=== PATIENT | female | born 1965 | race Caucasian/White ===

== ENCOUNTER → 2022-07-02 12:54 | Outpatient (CLI) | payer OTHER, SELFPAY ==
--- NOTE | ~2022-07-02 | MR_ITS ---
EXAMINATION: MR brain/brain stem wo/w con DATE: 07/02/2022 13:47 INDICATION: Speech deficit. Transient ischemic attack. TECHNIQUE: Magnetic resonance imaging (MRI) of the brain and brainstem was performed without and with 12 mL MultiHance intravenous contrast. COMPARISON: None. FINDINGS: There is no intracranial hemorrhage, acute infarction, or abnormal intracranial mass lesion . The ventricles are normal in size. The paranasal sinuses are clear. The orbits are normal. The mast oid air cells are normal. IMPRESSION: 1. Normal brain. Reviewed, dictated and finalized at location A. IMPRESSION: 1. Normal brain.
== END ==
PROVIDERS: PCP Family Medicine; Visit Provider Family Medicine
DX: G45.9 Transient cerebral ischemic attack, unspecified (principal)
CPT/HCPCS: 70553; A9577

== ENCOUNTER → 2022-07-11 07:42 | Outpatient (CLI) | payer OTHER, SELFPAY ==
--- NOTE | ~2022-07-11 | MR_ITS ---
EXAMINATION: MRA brain wo con DATE: 07/11/2022 08:49 INDICATION: Transient ischemic attack. Right finger numbness. TECHNIQUE: Magnetic resonance angiography (MRA) of the brain was performed without intravenous contra st with T1-weighted SPGR by the 3D [id number] technique. Maximum intensity projection 3D-reconstr uctions were obtained. COMPARISON: Brain MRI 07/02/2022 FINDINGS: Left vertebral artery is dominant. There is no significant stenosis of basilar artery or the posterio r cerebral arteries. There is no significant stenosis of the intracranial internal carotid arteries o r anterior or middle cerebral arteries. Anterior communicating artery is normal. Posterior communicat ing arteries are not identified. There is no aneurysm. IMPRESSION: 1. Normal head MRA. Reviewed, dictated and finalized at location A. IMPRESSION: 1. Normal head MRA.
== END ==
PROVIDERS: PCP Family Medicine; Visit Provider Family Medicine
DX: G45.9 Transient cerebral ischemic attack, unspecified (principal)
CPT/HCPCS: 70544

== ENCOUNTER 2023-03-25 09:37 | Observation (INO) | payer OTHER, SELFPAY ==
[2023-03-25] VITALS (21 sets, daily range): BP systolic 102–139; BP diastolic 56–87; PULSE 70–89; RESP 9–39; TEMP 36.4–36.7; O2SAT 98–100
--- NOTE | ~2023-03-25 | CT_ITS ---
EXAMINATION: CTA BRAIN/CAROTID DATE: 03/25/2023 11:56 INDICATION: Stroke symptoms TECHNIQUE: Computed tomographic angiography (CTA) of the head and neck was performed with 100 mL Omni paque-350 intravenous contrast. Multiplanar reconstructions and maximum intensity projection 3D-recon structions of the carotid arteries and of the intracranial arteries were created by the technologist on a separate workstation. Precontrast CT of the head was also obtained. Automated exposure control and iterative reconstruction technique were employed.The dose-length product was 913.34 mGy-cm. COMPARISON: None. FINDINGS: Carotid arteries: Aortic arch is normal caliber with no evident atherosclerotic plaque or dissection. Bilateral vertebr al arteries are codominant. Is no evident atherosclerotic plaque with 0% stenosis of the right and le ft carotid bulbs relative to normal distal artery lumen diameter (NASCET criteria). Visualized portio ns of the upper lungs are clear. Diffuse wall thickening along the esophagus suggestive of esophagiti s. Superior mediastinum is otherwise unremarkable. Mild to moderate cervical spondylosis most promine nt at C5-C6. Intracranial arteries There is no hemodynamically significant stenosis in the vertebral, basilar and internal carotid arter ies. Vertebral arteries are codominant. There are no aneurysms identified. Both A1 and P1 segments a re patent. There is a patent anterior communicating artery. Cerebral arterial arborization appears sy mmetric. No abnormally enhancing brain lesions. IMPRESSION: 1. 0% stenosis of the right and left carotid bulbs relative to normal distal artery lumen diameter (N ASCET criteria). 2. Normal cerebral CT angiogram. 3. Diffuse wall thickening of the visualized proximal to mid esophagus suggestive of esophagitis. Reviewed, dictated and finalized at location A. IMPRESSION: 1. 0% stenosis of the right and left carotid bulbs relative to normal distal ar sapphire lumen diameter (NASCET criteria). 2. Normal cerebral CT angiogram. 3. Diffuse wall thickening of the visualized proximal to mid esophagus suggesti ve of esophagitis.
--- NOTE | ~2023-03-25 | CT_ITS ---
Non-contrast Head CT History: CVA Technique: Axial non-contrast imaging of the brain was performed. Dose reduction technique was used on this scan by utilizing automated exposure control and iterative reconstruction technique. The dose -length product (DLP) was 605.33 mGy-cm. Findings: There is no evidence of intracranial hemorrhage, mass lesion, or acute infarct. Brain par enchyma appears normal. The ventricles and subarachnoid spaces are normal in size. The calvarium ap pears normal. The visualized paranasal sinuses and mastoid air cells are clear. Impression: No significant abnormality seen. Case discussed with Dr. Sanches at 9:50 AM on 03/25/2023. Reviewed, dictated and finalized at [facility]. Impression: No significant abnormality seen. Case discussed with Dr. Sanches at 9:50 AM on 03/25/2023.
--- NOTE | ~2023-03-25 | US_ITS ---
EXAMINATION: US venous doppler [facility] DATE: 03/26/2023 16:11 INDICATION: Transient ischemic attack and patent foramen ovale. TECHNIQUE: Grayscale ultrasound images without and with compression and Doppler ultrasound images of the bilateral lower extremity veins were obtained. COMPARISON: None. FINDINGS: The visualized portions of right common femoral vein, profunda (deep) femoral vein, femoral vein, pop liteal vein, peroneal veins, posterior tibial veins, and greater saphenous vein outflow are patent. The visualized portions of left common femoral vein, profunda femoral vein, femoral vein, popliteal v ein, peroneal veins, posterior tibial veins, and greater saphenous vein outflow are patent. IMPRESSION: 1. No deep venous thrombosis. Reviewed, dictated and finalized at location E.
--- NOTE | ~2023-03-25 | MR_ITS ---
EXAMINATION: MR brain/brain stem wo con DATE: 03/25/2023 15:45 INDICATION: Dizziness. Dysphasia. TECHNIQUE: Magnetic resonance imaging (MRI) of the brain and brainstem was performed without intraven ous contrast. COMPARISON: Brain MRI 07/02/2022, head CT 03/25/2023 FINDINGS: There is no intracranial hemorrhage, acute infarction, or abnormal intracranial mass lesion . The ventricles are normal in size. The orbits are normal. The paranasal sinuses are clear. The mast oid air cells are normal. IMPRESSION: 1. Normal brain. Reviewed, dictated and finalized at location E. IMPRESSION: 1. Normal brain.
--- NOTE | ~2023-03-25 | XR_ITS ---
EXAMINATION: XR chest 1V portable DATE: 03/25/2023 10:08 INDICATION: Stroke. Headache. TECHNIQUE: frontal view of the chest was obtained. COMPARISON: None FINDINGS: The lungs are clear with no focal airspace opacities, pulmonary edema, pleural effusion or pneumothor ax. The cardiomediastinal silhouette is normal. Visualized bones and soft tissues are unremarkable. IMPRESSION: 1. No acute cardiopulmonary disease. Reviewed, dictated and finalized at location A.
--- NOTE | 2023-03-25 09:40 | ECG_ITS ---
Measurements Intervals [place] Rate: 80 P: 64 NC: 125 QRS: -6 QRSD: 118 T: 28 QT: 392 QTc: 455 Interpretive Statements SINUS RHYTHM INCOMPLETE RIGHT BUNDLE BRANCH BLOCK MINIMAL Q WAVES- HIGH LATERAL LEADS BASELINE ARTIFACT- I, III, AVR, AVL, AVF BORDERLINE ECG NO PREVIOUS ECG AVAILABLE FOR COMPARISON Electronically Signed On 03-25-2023 10:06:03 CDT by Fletcher Bush D.O.
[2023-03-25 09:53] LABS: Glucose Point of Care 101 mg/dl (65-105)
[2023-03-25 09:59] LABS: Basophils Absolute Auto 0.1 K/mm3 (0.0-0.1); Basophils Percent Auto 0.7 % (0.2-1.2); Eosinophils Absolute Auto 0.4 K/mm3 (0-0.3); Eosinophils Percent Auto 5.5 % (0-4.4); Hematocrit 43.3 % (37.0-47.0); Hemoglobin 13.5 g/dL (12.0-15.0); Immature Granulocyte Absolute 0.04 K/mm3 (0.00-0.031); Immature Granulocyte Percent A 0.5 % (0-0.5); Lymphocytes Absolute Auto 2.74 K/mm3 (0.9-3.2); Lymphocytes Percent Auto 35.9 % (18.3-44.2); Mean Corpuscular HGB Conc 31.2 g/dl (32-36); Mean Corpuscular Hemoglobin 26.4 pg (26-34); Mean Corpuscular Volume 84.7 fl (80-100); Mean Platelet Volume 9.3 fl (7.4-10.4); Monocytes Absolute Auto 0.6 K/mm3 (0.1-0.6); Monocytes Percent Auto 8.3 % (2.6-8.5); Neutrophils Absolute Auto 3.8 K/mm3 (1.3-6.7); Neutrophils Percent Auto 49.1 % (45.5-73.1); Platelet Count Result 277 k/mm3 (150-375); Red Blood Count 5.11 M/mm3 (4.2-5.4); Red Cell Distribution Width 11.9 % (11.5-14.5); White Blood Count 7.6 K/mm3 (4.5-10.0)
--- NOTE | 2023-03-25 10:00 | ED.NEUROSD ---
HPI - Neuro Symptoms/Deficit General Chief Complaint: Suspected CVA Stated Complaint: r/o CVA Time Seen by Provider: 03/25/23 09:47 History of Present Illness HPI Narrative: Patient is a 57-year-old female who presents ER with strokelike symptoms. Reports she woke up this morning and was getting ready to go to work. She got in the shower at 6 AM and developed dizziness and right eye blurred vision. That lasted approximately 30 minutes. While this was going on she also had difficulty speaking. Since the symptoms began she has continued to have some difficulty with conversing that is waxed and waned in intensity but has never been totally normal. She has had no focal weakness to an arm or leg. Dizziness is reported as feeling off balance. She was worked up for CVA in the past at [facility] but it was negative. She was found to have a hole in her heart. Related Data Home Medications Medication Instructions Recorded Confirmed hyoscyamine sulfate 0.125 mg 0.375 mg PO BID 03/25/23 03/25/23 tablet (Levsin) Allergies Allergy/AdvReac Type Severity Reaction Status Date / Time doxycycline AdvReac Vomiting Verified 03/25/23 14:15 Review of Systems Review of Systems: All systems reviewed & are unremarkable except as noted in HPI and below Constitutional: Constitutional: Denies chills, Denies fever(s) and Reports headache(s) Eyes: Eyes: Reports change in vision and Denies diplopia Cardiovascular: Cardiovascular: Denies chest pain, Denies radiating jaw, neck or arm pain and Denies palpitations Respiratory: Respiratory: Denies cough, Denies dyspnea and Denies wheezing Gastrointestinal: Gastrointestinal: Denies abdominal pain, Denies diarrhea, Denies nausea and Denies vomiting Neurologic: Reports Abnormal speech present, Reports dizziness, Reports headache(s) and Reports focal weakness PMF Past Medical History Medical History H/O irritable bowel syndrome Surgical History Surgical History (Updated 03/25/23 @ 13:05 by Muriel Beavers NP) H/O breast augmentation H/O colonoscopy H/O hernia repair H/O: hemorrhoidectomy S/P tonsillectomy Family History Family History Father Heart disease Liver disease Sibling Diabetes mellitus borderline Son Ulcerative colitis Social History Social History (Updated 03/25/23 @ 16:33 by Muriel Beavers NP) Social History: She lives with and grandson. she has 4 children. she works in [employer] at [employer] . she is raising her 14-year-old grandson. code status full Smoking status: Former smoker Alcohol intake: former Substance use: current Substance use type: does not use Lack of Transportation: No Lack of Food: Never True Current Housing: I Have Housing Concerned About Future Housing: No Difficulty Paying Gas/Electric Bills: No Difficulty Paying for Meds: No Currently Unemployed: No Education: High School Diploma/GED Difficulty w/ Childcare or Family Care: No Spiritual care concerns: No Exam Narrative: GENERAL: Well-appearing, well-nourished, and in no acute distress. HEAD: Normocephalic, atraumatic. EYES: PERRL and EOMI. ENT: Mucous membranes moist. CHEST: Clear to auscultation. No respiratory distress. HEART: Regular rate and rhythm. Normal peripheral pulses. ABDOMEN: Soft, nontender, nondistended. EXTREMITIES: Normal range of motion. No edema. SKIN: Warm, dry, no rash. NEURO: Mild left facial weakness, mild aphasia with no dysarthria. No upper or lower extremity drift. Normal finger-nose testing and normal sdlr-[id number] testing. Alert and oriented x3. PSYCH: Normal mood and affect. Course Course Emergency Course: Discussed case with [facility] stroke team, Dr. Mccrary. We will low stroke scale waxing waning symptoms it is felt patient is not a good candidate for t
[2023-03-25 10:06] LABS: Alanine Aminotransferase 23 U/L (6-35); Alkaline Phosphatase 74 U/L (38-126); Anion Gap 6 mmol/L (8-16); Aspartate Amino Transferase 45 U/L (14-36); Bilirubin,Total 0.9 mg/dL (0.2-1.3); Blood Urea Nitrogen 14 mg/dL (7-17); Calcium 8.9 mg/dL (8.4-10.2); Carbon Dioxide 27 mmol/L (22-30); Chloride 105 mmol/L (98-107); Estimated Glomerular Filt Rate > 60; Glucose 105 mg/dL (65-110); Potassium 4.3 mmol/L (3.4-5.0); Sodium 138 mmol/L (137-145)
[2023-03-25 10:11] LABS: INR 0.9; Partial Thromboplastin Time 20.1 SECONDS (22.3-36.8); Prothrombin Time 12.1 Seconds (11.1-14.7)
[2023-03-25 10:17] LABS: Troponin I < 0.012 ng/mL (0.000-0.034)
[2023-03-25] MEDS: ASPIRIN 81 MG CHEWABLE TABLET 324 MG PO (10:29)
[2023-03-25] MEDS: ATORVASTATIN 40 MG TABLET PO (11:33)
[2023-03-25] MEDS: ACETAMINOPHEN 500 MG TABLET 1000 MG PO (12:21)
--- NOTE | 2023-03-25 12:58 | PM.IMHP ---
H&P: HPI History of Present Illness Date/Time: 03/25/23 12:58 Chief Complaint: neurological symptoms Narrative: this is a 57-year-old female patient who came to the emergency room today for concern for stroke-like symptoms. The patient stated that she was her usual state of health this morning when she got up and went to work. The patient stated she gotten shower at 6:00 a.m. and developed dizziness and right eye blurred vision. It lasted for approximately 30 minutes. The patient stated that she has had this before and she was ruled out for TIA. The patient stated that sometimes she has migraines as well but has not had a migraine a long time. Today the patient stated that she had a severe headache on the right side of her head. The patient stated that she was also having difficulty speaking when she had the other symptoms as well this morning. The patient had no focal weakness but did feel like she was off balance and had some dizziness with this as well. She has had a workup at [facility] in the past and was negative. The patient stated that she has a hole in the heart and is supposed to follow-up with cardiology. It sounds like it may be a PFO. The patient stated she was given 3 baby aspirin and now her symptoms have all resolved. Chest x-ray was read as no acute cardiopulmonary disease. Head and neck CTA were read as the following. 0% stenosis of the right and left carotid bulbs relative to normal distal artery lumen diameter (NASCET criteria). 2. Normal cerebral CT angiogram. 3. Diffuse wall thickening of the visualized proximal to mid esophagus suggestive of esophagitis. brain MRI normal brain. ER physician reported to me that [facility] neurology had been consulted and recommended that the patient did not receive any tPA at this time. Patient is back to her baseline level and has no focal weakness. No further neurological symptoms. Her speech is clear and her vision has improved. Neurology has been consulted. The patient also stated that she is being seen by a GI specialist for her chronic diarrhea. She has had chronic diarrhea since she has had a colonoscopy. She has been placed on Levsin but it is not helping she continues to diarrhea. She states that she can no longer control. The patient is being admitted to observation status on the date of service of 03/25/2023. Review of Systems Review of Systems: All systems reviewed & are unremarkable except as noted in HPI and below Constitutional: Constitutional: Reports as per HPI and Reports no additional constitutional complaints Eyes: Eyes: Reports as per HPI and Reports no additional eye complaints ENT: Reports system reviewed and no additional complaints, except as documented and Reports Normal hearing present Cardiovascular: Cardiovascular: Reports no additional cardiovascular complaints Respiratory: Respiratory: Reports no additional respiratory complaints and Reports no additional respiratory complaints Gastrointestinal: Gastrointestinal: Reports as per HPI and Reports no additional gastrointestinal complaints Musculoskeletal: Musculoskeletal: Reports no additional musculoskeletal complaints Integumentary/Breasts: Skin/Breast: Reports system reviewed and no additional complaints, except as docu and Reports as per HPI Neurologic: Reports system reviewed and no additional complaints, except as documented, Reports as per HPI and Reports Normal hearing present Psychiatric: Psychiatric: Reports no additional psychiatric complaints and Reports as per HPI Endocrine: Endocrine: Reports no additional endocrine complaints Hematologic/Lymphatic: Hematologic/Lymphatic: Reports no additional hematologic/lymphatic complaints Allergic/Immunologic: Allergic/Immunologic: Reports no additional allergic/immunologic complaints PMFSH Past Medical History Medical History H/O irritable bowel synd
--- NOTE | 2023-03-25 14:15 | ADMGEN ---
This patient, Asya Sanches, was admitted to [facility] Surg Room 312-01. Patient/family oriented to hospital policies and general routines including ID bracelet, bed and alarms, visiting hours, pain management, procedures, bathroom and other care routines, personal items, smoking policy, room service/diet, and visiting hours. Information on how to activate the Rapid Response Team has been discussed. Patient/Family are encouraged to report perceived risks to care and to ask questions if they do not understand what they are told or what they should do.
[2023-03-25] MEDS: HYDROcodone/acetaminophen (*CRX) 5-325 MG TABLET 1 TAB PO (14:41)
[2023-03-26] VITALS (9 sets, daily range): BP systolic 93–122; BP diastolic 58–72; PULSE 62–96; RESP 14–15; TEMP 36–36.5; O2SAT 97–98; BMI 21.9
--- NOTE | 2023-03-26 | ECHO_ITS ---
Patient Info Name: Asya Sanches Age: 57 years : 1965 Gender: Female Ht: 63 in Wt: 123 lbs BSA: 1.58 m2 HR: 75 bpm BP: 118 / 64 mmHg Technical Quality: Good Exam Date: 03/26/2023 11:12 AM Exam Location: [facility] Patient Status: Outpatient Admit Date: 03/25/2023 Staff Ordering Physician: Muriel Beavers NP Firefighter: Sandra Gomes RDCS Attending Provider: Obie Mccarthy MD Referring Physician: Ruthann ESPINOZA; Exam Type: CA echo doppler w bubble study Study Info Complete two-dimensional, color flow and Doppler transthoracic echocardiogram is performed with agitated saline. Contrast/Agitated Saline Contrast/Ag. Saline: Agitated Saline Amount: 20.00 ml Administered By: Ghazal Reyes RDCS Existing IV Access: Yes Summary 1. Left ventricular chamber dimension is mildly enlarged. 2. Left ventricular systolic function is normal, estimated at 60-65%. 3. The left ventricular diastolic function is abnormal. 4. E/e' 10 is mildly elevated. 5. Agitated saline injection with and without valsalva maneuver opacified right side cardiac chambers and with valsalva maneuver few bubbles shunted to left cardiac chambers suggestive of patent foramen ovale. 6. There is trace mitral valve regurgitation. 7. There is mild tricuspid valve regurgitation. 8. No pulmonary hypertension, estimated pulmonary arterial systolic pressure is 24 mmHg. 9. There is trace pulmonic regurgitation. 10. There is trivial pericardial effusion. Left Ventricle E/e' 10 is mildly elevated. Left ventricular chamber dimension is mildly enlarged. Left ventricular systolic function is normal, estimated at 60-65%. The left ventricular diastolic function is abnormal. Right Ventricle Right ventricular chamber dimension is normal. Right ventricular systolic function is normal. Left Atria Left atrial chamber dimension is normal. Right Atria Right atrial chamber dimension is normal. Atrial Septum Agitated saline injection with and without valsalva maneuver opacified right side cardiac chambers and with valsalva maneuver few bubbles shunted to left cardiac chambers suggestive of patent foramen ovale. Suspected patent foramen ovale visualized by 2D and agitated saline imaging. Aortic Valve The aortic valve is trileaflet. There is no aortic valve stenosis. There is no aortic valve regurgitation. Pulmonic Valve There is trace pulmonic regurgitation. Mitral Valve There is no mitral valve stenosis. There is trace mitral valve regurgitation. Tricuspid Valve There is mild tricuspid valve regurgitation. No pulmonary hypertension, estimated pulmonary arterial systolic pressure is 24 mmHg. Pericardium/Pleural There is trivial pericardial effusion. Inferior Vena Cava Normal inferior vena cava with >50% collapse upon inspiration consistent with normal right atrial pressure, 5 mmHg. Aorta The aortic root size at the sinus of Valsalva is normal. Left Ventricular Outflow Tract Name Value Normal LVOT 2D LVOT Diameter 2.0 cm LVOT Doppler LVOT Peak Gradient 7 mmHg LVOT Mean Gradient 4 mmHg LVOT VTI
[2023-03-26 02:29] LABS: Toxigenic C. Diff POSITIVE (NEGATIVE)
[2023-03-26] MEDS: VANCOMYCIN ORAL 125 MG/2.5 ML SYRUP PO ×4 (05:13→23:27)
[2023-03-26 06:56] LABS: Basophils Absolute Auto 0.1 K/mm3 (0.0-0.1); Basophils Percent Auto 0.7 % (0.2-1.2); Eosinophils Absolute Auto 0.6 K/mm3 (0-0.3); Eosinophils Percent Auto 9.2 % (0-4.4); Hematocrit 40.4 % (37.0-47.0); Hemoglobin 12.3 g/dL (12.0-15.0); Immature Granulocyte Absolute 0.03 K/mm3 (0.00-0.031); Immature Granulocyte Percent A 0.4 % (0-0.5); Lymphocytes Absolute Auto 2.28 K/mm3 (0.9-3.2); Lymphocytes Percent Auto 33.2 % (18.3-44.2); Mean Corpuscular HGB Conc 30.4 g/dl (32-36); Mean Corpuscular Hemoglobin 25.7 pg (26-34); Mean Corpuscular Volume 84.3 fl (80-100); Mean Platelet Volume 9.2 fl (7.4-10.4); Monocytes Absolute Auto 0.6 K/mm3 (0.1-0.6); Monocytes Percent Auto 8.7 % (2.6-8.5); Neutrophils Absolute Auto 3.3 K/mm3 (1.3-6.7); Neutrophils Percent Auto 47.8 % (45.5-73.1); Platelet Count Result 273 k/mm3 (150-375); Red Blood Count 4.79 M/mm3 (4.2-5.4); Red Cell Distribution Width 11.8 % (11.5-14.5); White Blood Count 6.9 K/mm3 (4.5-10.0)
[2023-03-26 07:05] LABS: Lactic Acid Reflex 0.7 mmol/L (0.7-2.0)
[2023-03-26 07:11] LABS: Alanine Aminotransferase 22 U/L (6-35); Albumin Level 3.4 g/dL (3.5-5.1); Alkaline Phosphatase 65 U/L (38-126); Anion Gap 3 mmol/L (8-16); Aspartate Amino Transferase 40 U/L (14-36); Bilirubin,Total 0.9 mg/dL (0.2-1.3); Blood Urea Nitrogen 10 mg/dL (7-17); Calcium 8.5 mg/dL (8.4-10.2); Carbon Dioxide 28 mmol/L (22-30); Chloride 105 mmol/L (98-107); Estimated CRCL calculation 57 ml/min; Estimated Glomerular Filt Rate > 60; Glucose 86 mg/dL (65-110); Magnesium 1.9 mg/dL (1.6-2.3); Potassium 3.8 mmol/L (3.4-5.0); Sodium 136 mmol/L (137-145)
[2023-03-26] MEDS: ASPIRIN 81 MG ENTERIC TABLET PO (09:16)
--- NOTE | 2023-03-26 09:27 | WPDNEURCNPN ---
Assessment and Plan Assessment and plan (1) Headache: Code(s): R51.9 - Headache, unspecified Status: Acute (2) Aphasia: Code(s): R47.01 - Aphasia Status: Acute (3) Right arm weakness: Code(s): R29.898 - Other symptoms and signs involving the musculoskeletal system Status: Acute (4) PFO (patent foramen ovale): Code(s): Q21.12 - Patent foramen ovale Status: Acute Plan Ms Sanches is a 57 year old female presenting with an episode of right sided blurry vision, RUE weakness, and word finding difficulties that self-resolved. This symptoms occured in the setting of a headache. She has had a prior episode in the past year that occurred without a headache. MRI brain was unrevealing. Suspect TIA vs migraine with aura. She does have a PFO noted on echo, which raises concern for paradoxical embolism. Given possibility for vascular event, I would recommend continuing Aspirin 81mg daily. I would also avoid any triptans for migraines, in case this truly was a TIA. - Continue Aspirin 81mg daily - Recommend lower extremity doppler studies - If negative, ok to discharge - Will need follow up with her Net Development Manager and Neurologist. Consult date: 03/26/23 Reason for consult: TIA HPI: Asya Sanches is a 57 year old female with a history of prior TIA presenting due to concerns for facial droop and speech changes. Patient woke up yesterday feeling normal. While in the shower, she developed dizziness and blurry vision of the right eye, lasting about 30 minutes. She felt like she was having word finding difficulties off an on throughout the morning. She also felt that she was having coordination issues with her right upper extremity. She also had a frontal headache with these symptoms. When she presented to the emergency department, she was found to have mild left facial droop and mild word finding difficulties. ER physician discussed case with [facility] stroke service, and it was decided that patient was not a candidate for tPA due to resolving symptoms. She had a negative CT and CTA showed no evidence of stenosis or large vessel occlusion. She was placed on Aspirin and MRI brain was obtained which was normal. Her blood pressure has ranged between 100-130s systolic. Patient reports in the past she has had a similar episode for which she was evaluated at [facility]. She did not have a headache with this episode. However, she was told by her Neurologist at [facility] that the episode was likely a migraine rather than a TIA. She had an echocardiogram which showed hole in the back of the heart per patient, and she did follow up with a Net Development Manager who had planned on obtaining a LOC which hasn't been done yet. She was not taking aspirin prior to this admission. She also has been having diarrhea for the past five months. She was found to have C. diff during this admission. Echocardiogram done today shows possible PFO. Review of Systems Constitutional: Constitutional: Denies chills, Denies fever(s) and Denies weight loss Eyes: Eyes: Reports blurry vision, Denies diplopia and Denies loss of vision ENT: Denies dizziness, Denies hearing loss and Denies tinnitus Cardiovascular: Cardiovascular: Denies chest pain, Denies syncope and Denies dyspnea Respiratory: Respiratory: Denies cough, Denies dyspnea and Denies wheezing Gastrointestinal: Gastrointestinal: Denies abdominal pain, Denies change in bowel habits, Reports diarrhea and Denies vomiting Genitourinary: Genitourinary: Denies urinary incontinence Musculoskeletal: Musculoskeletal: Denies arthralgias and Denies joint swelling Integumentary/Breasts: Skin/Breast: Denies new lesions and Denies rash Neurologic: Reports as per HPI, Denies dizziness, Denies syncope and Denies loss of vision Psychiatric: Psychiatric: Denies anxiety and Denies depression Endocrine: Endocrine: Denies cold intolerance and Denies heat intolerance Hematologic/Lymphatic: Hematologic/Lymphatic: Denies easy ble
[2023-03-26 14:21] LABS: LDL Cholesterol Direct 108 mg/dL
--- NOTE | 2023-03-26 14:28 | PM.IMPN ---
Progress Note: A&P Assessment and Plan (1) Neurological symptoms: Code(s): R29.90 - Unspecified symptoms and signs involving the nervous system Status: Acute Assessment and Plan: Symptoms have resolved. Neurology has been consulted. Continue with daily aspirin. Echo has been ordered. The patient stated that she has had an echo in the past and she found that she had a hole in her heart. It sounds like she may have a patent PFO. 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 MRI was reported as negative. The patient also complained of having headache so this could possibly just be a migraine. Further recommendation per Neurology. Continue with neuro checks as per protocol. Her neurological status is at her baseline. She has no focal weakness and her speech is clear at this time. ER physician stated that he did call [facility] and was told that there was no need for tPA at this time. The patient was instructed if she has similar symptoms that she should reported to nursing staff marcus. (2) H/O irritable bowel syndrome: Code(s): Z87.19 - Personal history of other diseases of the digestive system Status: Acute Assessment and Plan: The patient stated that she is seeing Dr. Amanda for her chronic diarrhea. She has been taking Levsin for several weeks now. And she was told that it may take up to 6 weeks before it helps with the diarrhea. However the patient stated that she has no control over diarrhea at times. She is not wanting to see another GI doctor at this time however she is agreeable to stool samples being sent for cultures. Stool cultures positive for C. Diff. Started on PO Vancomycin. CC consulted for vancomycin pricing. Subjective Date/time seen: 03/26/23 14:28 Interval history: Patient up to bed and feeling well today. Patient states that she has had diarrhea for several months. She has had urgency and frequency during this time. 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 She has had accidents due to the urgency of her bowel movements. She does not have any abdominal pain at this time but still continues to have diarrhea. Will continue on vancomycin at this time. Review of Systems Review of Systems: All systems reviewed & are unremarkable except as noted in HPI and below Exam Narrative: GENERAL: Comfortable, no acute distress HENMT: Moist mucous membranes EYES: EOM intact b/l NECK: No lymphadenopathy RESPIRATORY: Clear to auscultation CARDIO: RRR GI: Soft, nontender, bowel sounds present SKIN: No rashes EXTREMITIES: No edema, redness or tenderness Objective Data Vital Signs Vital Signs: Vital Signs - 24 hr 03/25/23 16:13 03/25/23 21:43 03/25/23 20:00 Temperature 97.6 F Pulse Rate 72 80 Respiratory Rate 14 Blood Pressure 102/56 L Pulse Oximetry 98 Oxygen Delivery Room Air 03/25/23 20:00 03/26/23 00:00 03/26/23 04:00 Temperature Pulse Rate 70 62 71 Respiratory Rate Blood Pressure Pulse Oximetry Oxygen Delivery 03/26/23 05:38 03/26/23 08:00 03/26/23 08:00 Temperature 97.2 F L Pulse Rate 85 70 Respiratory Rate 14 Blood Pressure 122/72 Pulse Oximetry 97 97 Oxygen Delivery Room Air 03/26/23 12:00 Temperature Pulse Rate 96 Respiratory Rate Blood Pressure Pulse Oximetry Oxygen Delivery Intake/Output Intake/Output: Intake & Output 03/23/23 03/24/23 03/25/23 03/26/23 23:59 23:59 23:59 23:59 Intake Total 480 962 Output Total 800 Balance 480 162 Meds/Results Medications: Active Medications Generic Name Dose Route Start Last Admin Trade Name Freq PRN Reason Stop Dose Admin Acetaminophen 650 mg 03/25/23 12:36 Acetaminophen 325 Mg Tablet PO Q4H PRN Mild Pain (1-3) or Fever Hydrocodone Bitart/Acetaminophen 1 tab
[2023-03-26] MEDS: HYOSCYAMINE SULFATE 0.375 MG TAB.ER.12H PO (20:28)
[2023-03-27] VITALS: PULSE 85
[2023-03-27 04:00] VITALS: PULSE 79
[2023-03-27] MEDS: VANCOMYCIN ORAL 125 MG/2.5 ML SYRUP PO (05:45)
[2023-03-27 06:00] VITALS: BP 92/67; PULSE 85; RESP 16; TEMP 35.9; O2SAT 97
[2023-03-27 07:25] LABS: Basophils Percent Auto 0.5 % (0.2-1.2); Eosinophils Absolute Auto 0.6 K/mm3 (0-0.3); Eosinophils Percent Auto 7.8 % (0-4.4); Hematocrit 40.3 % (37.0-47.0); Hemoglobin 12.4 g/dL (12.0-15.0); Immature Granulocyte Absolute 0.03 K/mm3 (0.00-0.031); Immature Granulocyte Percent A 0.4 % (0-0.5); Lymphocytes Absolute Auto 2.38 K/mm3 (0.9-3.2); Lymphocytes Percent Auto 31.4 % (18.3-44.2); Mean Corpuscular HGB Conc 30.8 g/dl (32-36); Mean Corpuscular Hemoglobin 25.6 pg (26-34); Mean Corpuscular Volume 83.1 fl (80-100); Mean Platelet Volume 9.2 fl (7.4-10.4); Monocytes Absolute Auto 0.8 K/mm3 (0.1-0.6); Monocytes Percent Auto 10.3 % (2.6-8.5); Neutrophils Absolute Auto 3.8 K/mm3 (1.3-6.7); Neutrophils Percent Auto 49.6 % (45.5-73.1); Platelet Count Result 271 k/mm3 (150-375); Red Blood Count 4.85 M/mm3 (4.2-5.4); Red Cell Distribution Width 11.7 % (11.5-14.5); White Blood Count 7.6 K/mm3 (4.5-10.0)
[2023-03-27 07:27] LABS: Alanine Aminotransferase 21 U/L (6-35); Albumin Level 3.4 g/dL (3.5-5.1); Alkaline Phosphatase 65 U/L (38-126); Anion Gap 6 mmol/L (8-16); Aspartate Amino Transferase 35 U/L (14-36); Bilirubin,Total 0.9 mg/dL (0.2-1.3); Blood Urea Nitrogen 10 mg/dL (7-17); Calcium 8.4 mg/dL (8.4-10.2); Carbon Dioxide 24 mmol/L (22-30); Chloride 105 mmol/L (98-107); Estimated CRCL calculation 57 ml/min; Estimated Glomerular Filt Rate > 60; Glucose 89 mg/dL (65-110); Magnesium 1.9 mg/dL (1.6-2.3); Sodium 135 mmol/L (137-145)
[2023-03-27 08:00] VITALS: PULSE 72
[2023-03-27] MEDS: ASPIRIN 81 MG ENTERIC TABLET PO (10:22)
--- NOTE | 2023-03-27 10:41 | PM.DS ---
DS: Admitting Diagnosis Discharge Date 03/27/23 Admitting Diagnosis Diarrhea, concern for CVA DS: Discharge Diagnosis Discharge Diagnosis (1) Neurological symptoms: Code(s): R29.90 - Unspecified symptoms and signs involving the nervous system Status: Acute Assessment and Plan: Symptoms have resolved. Neurology has been consulted. Continue with daily aspirin. Echo has been ordered. The patient stated that she has had an echo in the past and she found that she had a hole in her heart. It sounds like she may have a patent PFO. 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 MRI was reported as negative. The patient also complained of having headache so this could possibly just be a migraine. Further recommendation per Neurology. Continue with neuro checks as per protocol. Her neurological status is at her baseline. She has no focal weakness and her speech is clear at this time. ER physician stated that he did call [facility] and was told that there was no need for tPA at this time. The patient was instructed if she has similar symptoms that she should reported to nursing staff marcus. (2) H/O irritable bowel syndrome: Code(s): Z87.19 - Personal history of other diseases of the digestive system Status: Acute Assessment and Plan: The patient stated that she is seeing Dr. Amanda for her chronic diarrhea. She has been taking Levsin for several weeks now. And she was told that it may take up to 6 weeks before it helps with the diarrhea. However the patient stated that she has no control over diarrhea at times. She is not wanting to see another GI doctor at this time however she is agreeable to stool samples being sent for cultures. Stool cultures positive for C. Diff. Started on PO Vancomycin. CC consulted for vancomycin pricing. DS: Summary Hospital Course Hospital Course: this is a 57-year-old female that presented to the ED on 03/25/2023 due to having stroke-like symptoms. that morning patient developed dizziness and right I had blurred vision that resolved after approximately 30 minutes. Patient had went to work where she developed a severe headache on the right side of her head and having difficulty speaking patient's co-worker advice that she be seen at the ED. patient had been seen before and worked up for stroke at [facility] and it was ruled out. At that time patient was told that she had a hole in her heart was told to follow-up with cardiology but patient has not done this yet. Chest x-ray negative for acute cardiopulmonary process. CTA read is 0% stenosis of the right and left carotid artery, negative for stroke. ER consulted [facility] and they recommended that patient did not have tPA at this time due to patient being at her baseline and not having any focal weakness. Neurology consulted. And they advised patient continue daily baby aspirin. Lower extremity Dopplers negative advised to follow-up with oil derrick operator and neurologist. ? Patient states that she has had diarrhea for several months.? Patient has been seen by GI specialist that put her on Levsin For IBS. She has had urgency and frequency during this time.? 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 She has had accidents due to the urgency of her bowel movements.? She does not have any abdominal pain at this time but still continues to have diarrhea.?Stool cultures were done and patient was positive for C diff. patient started on p.o. vancomycin. On day of discharge patient states that her frequency has decreased and she is feeling much better. Will discontinue patient's less than and she will keep it on a 10 day course of vancomycin. Discussed importance of washing hands with soap and water as well as surfaces with bleach. Patient verbalized understanding. Candido
== END 2023-03-27 11:35 | disposition home or self-care (01) ==
LOC: ANHED 10:14 → ANH3MEDSUR 13:55
PROVIDERS: Nurse Practitioner; Student in an Organized Health Care Education/Training Program; Admitting Provider Internal Medicine; Emergency Provider Emergency Medicine; PCP Family Medicine; Visit Provider Internal Medicine Critical Care Medicine
DX: R29.90 Unspecified symptoms and signs involving the nervous system (principal); K58.0 Irritable bowel syndrome with diarrhea; A04.72 Enterocolitis due to Clostridium difficile, not specified as recurrent; R53.1 Weakness; R42 Dizziness and giddiness; H53.8 Other visual disturbances; R47.01 Aphasia; R47.02 Dysphasia; I07.1 Rheumatic tricuspid insufficiency; R39.15 Urgency of urination; R35.0 Frequency of micturition; R29.898 Other symptoms and signs involving the musculoskeletal system; I45.10 Unspecified right bundle-branch block; R51.9 Headache, unspecified; Q21.12 Patent foramen ovale; Z87.19 Personal history of other diseases of the digestive system; Z87.891 Personal history of nicotine dependence; Z79.899 Other long term (current) drug therapy
CPT/HCPCS: 36415; 70450; 70496; 70498; 70551; 71045; 80053; 82948; 83605; 83721; 83735; 84443; 84484; 85025; 85610; 85730; 87045; 87269; 87272; 87427; 87493; 89055; 93005; 93306; 93970; 96375; 99285; A9270; G0378; Q9967